=== PATIENT | male | born 1950 | race Caucasian/White ===

== ENCOUNTER → 2017-08-04 | Outpatient (CLI) | payer OTHER | LOC: FIMAGING 10:55 | PROVIDERS: ATTEND Orthopaedic Surgery Orthopaedic Surgery of the Spine | DX: M43.17 Spondylolisthesis, lumbosacral region (principal); I70.0 Atherosclerosis of aorta ==

== ENCOUNTER 2017-08-09 05:45 | Inpatient (IN) | payer OTHER ==
--- NOTE | 2017-08-08 14:37 | GHP ---
[f rep st] PREOP HISTORY AND PHYSICAL DATE OF ADMISSION: 08/09/2017 HISTORY OF PRESENT ILLNESS: The patient is a pleasant, 67-year-old gentleman who states that in his early 20s he was diagnosed with bilateral L5 pars stress fractures. He has had symptoms for many years since that time. He has undergone numerous treatments including physical therapy, acupuncture, multiple epidural steroid injections, chiropractics, and pain management. His symptoms have worsened. He complains predominantly of right buttock pain and difficulty with ambulation and prolonged standing. On a 1-10 scale, his daily pain is typically a 7 to an 8. He denies any loss of bowel or bladder control. SOCIAL HISTORY: The patient quit smoking 12 years ago. He used to smoke approximately 3 to 3-1/2 packs of cigarettes per day. He is retired. He denies the use of current alcohol and current use of tobacco. FAMILY HISTORY: Heart disease, diabetes mellitus type 2, and cancer. PAST MEDICAL HISTORY: Hypertension, hypercholesterolemia, coronary artery disease, borderline diabetes, right Butler-Schlatter disease, and a history of angina. The patient has seen his scruff worker Dr. Rufus Venegas, who did a treadmill stress test that was reviewed and was without chest pain and no evidence of ST-segment changes, and his EKG was normal. The scruff worker stated he was in the relatively low setting of a normal stress test with regard to his cardiovascular risk. PAST SURGICAL HISTORY: Bilateral rotator cuff repairs, right wrist surgery, and 5 cardiac stents. ALLERGIES TO MEDICATIONS: Niacin. PHYSICAL EXAMINATION: VITAL SIGNS: The patient is 5 feet 6 inches tall and weighs 194 pounds. GENERAL: He is alert and oriented x3. CARDIAC: Regular rate and rhythm without a detectable murmur, rub or gallop. LUNGS: Clear to auscultation without rales or rhonchi. NEUROLOGIC: Exam shows bilateral lower extremity strength to be 5/5 throughout. Light touch is intact. He does not have a footdrop. Straight leg raising is positive on the right and negative on the left. Gait is antalgic, favoring the right lower extremity. His buttock pain is worse on the right with extension. RADIOGRAPHIC STUDIES: An updated MRI of the lumbar spine shows a grade 2 isthmic spondylolisthesis at L5-S1 with [id number] degenerative disk disease. There is severe bilateral foraminal stenosis at the same level and bilateral L5 pars fracture nonunions. IMPRESSION: 1. Grade 2 isthmic spondylolisthesis L5-S1. 2. Right L5 radiculopathy. 3. Severe bilateral foraminal stenosis at L5-S1 and gmkcvzhk-qz-klqnsm degenerative disk disease L5-S1. PLAN: Rober has elected to undergo surgery. This will be in the form of an L5- S1 laminectomy, takedown of bilateral pars fracture nonunions, transforaminal lumbar interbody fusion, posterior fusion with instrumentation. Potential risks , benefits, and possible complications have been thoroughly discussed with the patient, including, but not limited to, dural tear with CSF leak, meningitis, nerve root injury, partial or complete paralysis, infection, need for further surgery, drop foot, DVT, PE, pneumonia, stroke, heart attack, hemorrhage, blindness, and . The patient understands because of his medical problems, he may be at higher risk as well. I anticipate a 3-night hospital stay, including the day of surgery. The patient understands my protocol for postoperative pain management. He will be n.p.o. after midnight tonight. /[id number]/MODL MTDD
[2017-08-09] MEDS ORDERED: ceFAZolin 2 GM/SWFI 2 GM/20 ML SYR IVP ONE (06:12)
[2017-08-09] MEDS ORDERED: GABAPENTIN 300 MG CAP PO ONE (06:12)
[2017-08-09] MEDS ORDERED: ACETAMINOPHEN 500 MG TAB PO ONE (06:12)
[2017-08-09] MEDS ORDERED: LR 1,000 ML IV ONE (06:16)
[2017-08-09] MEDS ORDERED: BUPIVACAINE 0.25% 30 ML SDV ONE (06:46)
[2017-08-09] MEDS ORDERED: AVITENE POWDER 1 GM JAR TP ONE (06:46)
[2017-08-09] MEDS ORDERED: CITRATE DEXTROSE SOLN 500 ML BAG ONE (06:46)
[2017-08-09] MEDS ORDERED: THROMBIN (BOVINE) 20,000 UNIT VIAL TP ONE (06:46)
[2017-08-09] MEDS ORDERED: BACITRACIN 50,000 UNITS/10 ML SYR IRR ONE (06:47)
[2017-08-09] MEDS ORDERED: DEXMEDETOMIDINE/NS 4MCG/ML 50 ML BTL IV ONE (07:08)
[2017-08-09] MEDS ORDERED: ALBUMIN 5% 250 ML BOTTLE IV ONE (07:08)
[2017-08-09] MEDS ORDERED: MIDAZOLAM 2 MG/2 ML VIAL ONE (07:09)
[2017-08-09] MEDS ORDERED: PROPOFOL/EMULSION 500 MG/50 ML BOTTLE IV ONE ×2 (07:10→09:54)
[2017-08-09] MEDS ORDERED: fentaNYL 100 MCG/2 ML INJ ONE ×3 (07:10→13:35)
--- NOTE | 2017-08-09 07:16 | PDHPUP ---
History & Physical Update H&P update statement: This history and physical update is based on an assessment of the patient which was completed after admission or registration (within 24 hours), but prior to the surgery/procedure. H&P update: H&P reviewed & patient examined, no change in patient's condition since H&P completed
[2017-08-09] MEDS ORDERED: diphenhydrAMINE 25 MG CAP PO PRN (07:34)
[2017-08-09] MEDS ORDERED: LACTULOSE 20 GM/30 ML UDCUP PO PRN (07:34)
[2017-08-09] MEDS ORDERED: ONDANSETRON 4 MG/2 ML VIAL IVP PRN ×2 (07:34→10:26)
[2017-08-09] MEDS ORDERED: MAGNESIUM HYDROXIDE 30 ML UDCUP PO PRN (07:34)
[2017-08-09] MEDS ORDERED: BISACODYL 10 MG SUPP PR PRN (07:34)
[2017-08-09] MEDS ORDERED: ONDANSETRON DISINTEGRATING 4 MG TAB PO PRN (07:34)
[2017-08-09] MEDS ORDERED: DIAZEPAM 10 MG/2 ML SYR IVP PRN (07:50)
[2017-08-09] MEDS ORDERED: DIAZEPAM 10 MG/2 ML SYR ONE (07:55)
[2017-08-09] MEDS ORDERED: ROCURONIUM 50 MG/5 ML VIAL ONE ×2 (08:21→09:09)
[2017-08-09] MEDS ORDERED: LIDOCAINE 2% 5 ML SDV ONE (08:21)
[2017-08-09] MEDS ORDERED: RANITIDINE 50 MG/2 ML VIAL ONE (08:21)
[2017-08-09] MEDS ORDERED: ONDANSETRON 4 MG/2 ML VIAL ONE (08:21)
[2017-08-09] MEDS ORDERED: METOCLOPRAMIDE 10 MG/2 ML VIAL ONE (08:21)
[2017-08-09] MEDS ORDERED: PHENYLEPHRINE HCL 100 MCG/ML SYR ONE (08:23)
[2017-08-09] MEDS ORDERED: fentaNYL 100 MCG/2 ML INJ IT ONE (08:30)
[2017-08-09] MEDS ORDERED: morphINE PF 5 MG/10 ML INJ IT ONE (08:30)
[2017-08-09] MEDS ORDERED: morphINE PF 5 MG/10 ML INJ ONE (08:33)
--- NOTE | 2017-08-09 09:09 | PDANEPAE ---
ANE Past Medical History - Cardiovascular History Hx Hypertension: Yes Hx Arrhythmias: No Hx Chest Pain: No Hx Coronary Artery / Peripheral Vascular Disease: Yes Hx CHF / Valvular Disease: No Hx Palpitations: No Cardiovascular History Comment: CARDIAC STENTS X7 - Pulmonary History Hx COPD: No Hx Asthma/Reactive Airway Disease: No Hx Recent Upper Respiratory Infection: No Hx Oxygen in Use at Home: No Hx Sleep Apnea: No Sleep Apnea Screening Result - Last Documented: Positive - Neurologic History Hx Cerebrovascular Accident: No Hx Seizures: No Hx Dementia: No - Endocrine History Hx Diabetes: No Endocrine History Comment: POSS PRE DIAB - Renal History Hx Renal Disorders: Yes Renal History Comment: CYSTS KIDNEYS. KIDNEY STONES YRS AGO - Liver History Hx Hepatic Disorders: No - Neurological & Psychiatric Hx Hx Neurological and Psychiatric Disorders: No - Cancer History Hx Cancer: No - Congenital Disorder History Hx Congenital Disorders: No - GI History Hx Gastrointestinal Disorders: No - Other Health History Other Health History: NEG. LYME DISEASE IN PAST - Chronic Pain History Chronic Pain: Yes (BACK PAIN, HIP R) - Surgical History Prior Surgeries: CARDIAC CATH W/STENTS X3. RTC CHARLENE X5. WRIST X2 ANE Review of Systems Review of Systems: - Exercise capacity METS (RN): 4 METS ANE Patient History - Allergies Allergies/Adverse Reactions: niacin Allergy (Verified 07/27/17 10:22) Itching - Home Medications Home Medications: Aspirin [Aspirin 325 mg (*)] 162.5 mg PO DAILY 07/27/17 [Last Taken 07/31/17] Atorvastatin Calcium [Lipitor 40 mg (*)] 40 mg PO DAILY 07/27/17 [Last Taken 04/18] Herbals/Supplements -Info Only 1 ea PO DAILY 07/27/17 [Last Taken 08/01/17] Isosorbide Mononitrate [Imdur 30 mg (*)] 30 mg PO DAILY 07/27/17 [Last Taken 04/18] Lisinopril [Zestril 10 mg (*)] 10 mg PO DAILY 07/27/17 [Last Taken 08/08/17] Metoprolol Succinate Xr [Toprol Xl 50 mg (*)] 50 mg PO DAILY 07/27/17 [Last Taken 08/09/17] Multivitamins [Multivitamin (*)] 1 each PO DAILY 07/27/17 [Last Taken 08/01/17] - NPO status NPO Since - Liquids (Date): 08/08/17 NPO Since - Liquids (Time): 23:00 NPO Since - Solids (Date): 08/08/17 NPO Since - Solids (Time): 19:00 - Smoking Hx Smoking Status: Former smoker - Family Anes Hx Family Hx Anesthesia Complications: NEG ANE Labs/Vital Signs - Vital Signs Blood Pressure: 139/88 Heart Rate: 77 Respiratory Rate: 16 O2 Sat (%): 95 Height: 167.64 cm Weight: 87.543 kg ANE Physical Exam - Airway Neck exam: decreased ROM, short neck Mallampati Score: Class 2 Mouth exam: normal dental/mouth exam, small mouth opening - Pulmonary Pulmonary: no respiratory distress, no rales or rhonchi, clear to auscultation - Cardiovascular Cardiovascular: regular rate and rhythym, no murmur, rub, or gallop - ASA Status ASA Status: III ANE Anesthesia Plan Anesthesia Plan: general endotracheal anesthesia Lines/Monitors: arterial line, additional IV
[2017-08-09] MEDS ORDERED: ceFAZolin 1 GM VIAL ONE (09:10)
[2017-08-09] MEDS ORDERED: METOPROLOL TARTRATE 5 MG/5 ML INJ ONE (09:10)
[2017-08-09] MEDS ORDERED: SUGAMMADEX SODIUM 200 MG/2 ML VIAL IVP ONE (09:24)
[2017-08-09] MEDS ORDERED: LR 500 ML IV PRN (10:26)
[2017-08-09] MEDS ORDERED: DEXAMETHASONE 4 MG/ML VIAL IVP PRN (10:26)
[2017-08-09] MEDS ORDERED: METOCLOPRAMIDE 10 MG/2 ML VIAL IVP PRN (10:26)
[2017-08-09] MEDS ORDERED: NALOXONE HCL 0.4 MG/ML INJ IVP PRN (10:26)
[2017-08-09] MEDS ORDERED: PROMETHAZINE HCL 25 MG/ML INJ IVP PRN (10:26)
[2017-08-09] MEDS ORDERED: ALBUTEROL 3 ML DEYVIAL IH PRN (10:26)
--- NOTE | 2017-08-09 12:36 | POSTOPPROG ---
Post Op Note Date of Operation: 08/09/17 Surgeon: Chastity Soto Store Protection Specialist: Nasreen Amanda SA Anesthesiologist: MD Dagoberto Anesthesia: GET(General Endotracheal) Pre-op Diagnosis: grade 2, spondylolisthesis L5-S1 Post-op Diagnosis: same Indication: Right sciatica and chronic low back pain Procedure: L5-S1 lami, TLIF, posterior fusion with instrumentation Findings: Bilat L5 pars fracture nonunions Inf/Abcess present in the surg proc area at time of surgery?: No Depth: Deep Incisional (Fascial) EBL: 300 cc Total fluids administered: 900 cc LR, 500 cc albumin Complications: none. No changes in neuro monitoring. Drains: Jareth Fiore
[2017-08-09] MEDS: fentaNYL 100 MCG/2 ML INJ IVP PRN ×2 (14:01→14:44)
[2017-08-09] MEDS: ATORVASTATIN CALCIUM 40 MG TAB PO SCH (14:17)
[2017-08-09] MEDS: FAMOTIDINE 20 MG TAB PO SCH ×2 (14:17→20:39)
[2017-08-09] MEDS: ceFAZolin 2 GM/DEXTROSE 100 ML IV SCH ×3 (14:17→22:45)
[2017-08-09] MEDS: ISOSORBIDE MONONITRATE 30 MG TAB.SR PO SCH (14:17)
[2017-08-09] MEDS: SENNOSIDES/DOCUSATE SODIUM TAB PO SCH ×2 (14:18→20:40)
[2017-08-09] MEDS: LISINOPRIL 10 MG TAB PO SCH (14:18)
[2017-08-09] MEDS: morphINE SR 15 MG TAB PO SCH ×2 (14:18→20:40)
[2017-08-09] MEDS: METOPROLOL SUCCINATE XR 50 MG TAB PO SCH (14:19)
[2017-08-09] MEDS: NS W/ 20 KCl/L 1,000 ML IV SCH (15:43)
[2017-08-09] MEDS: DIAZEPAM 5 MG TAB PO PRN ×2 (17:37→22:45)
[2017-08-09] MEDS: oxyCODONE IR 5 MG TAB PO PRN ×2 (17:37→22:44)
[2017-08-10] MEDS: NS W/ 20 KCl/L 1,000 ML IV SCH ×2 (01:59→17:41)
[2017-08-10] MEDS: ceFAZolin 2 GM/DEXTROSE 100 ML IV SCH ×3 (05:20→21:06)
[2017-08-10] MEDS: METOPROLOL SUCCINATE XR 50 MG TAB PO SCH (08:07)
[2017-08-10] MEDS: oxyCODONE IR 5 MG TAB PO PRN (08:07)
[2017-08-10] MEDS: DIAZEPAM 5 MG TAB PO PRN (08:08)
[2017-08-10] MEDS: morphINE SR 15 MG TAB PO SCH ×2 (08:08→22:10)
[2017-08-10] MEDS: ISOSORBIDE MONONITRATE 30 MG TAB.SR PO SCH (08:09)
[2017-08-10] MEDS: FAMOTIDINE 20 MG TAB PO SCH ×2 (08:09→21:17)
[2017-08-10] MEDS: SENNOSIDES/DOCUSATE SODIUM TAB PO SCH ×2 (08:09→21:17)
[2017-08-10] MEDS: LISINOPRIL 10 MG TAB PO SCH (08:10)
[2017-08-10] MEDS: ATORVASTATIN CALCIUM 40 MG TAB PO SCH (08:10)
[2017-08-10] MEDS: POLYETHYLENE GLYCOL 3350 17 GM PKT PO PRN (08:10)
[2017-08-10] MEDS: HYDROmorphONE/DILAUDID 1 MG/ML INJ IVP PRN ×2 (09:01→11:40)
[2017-08-10] MEDS: METHOCARBAMOL 750 MG TAB PO PRN (09:01)
[2017-08-10] MEDS: DEXAMETHASONE 10 MG/ML VIAL IV SCH ×3 (11:28→21:06)
[2017-08-10] MEDS: METOCLOPRAMIDE 10 MG/2 ML VIAL IV SCH ×2 (11:28→21:06)
[2017-08-10] MEDS: GABAPENTIN 300 MG CAP PO SCH ×3 (11:40→21:17)
--- NOTE | 2017-08-10 15:46 | ASMTCMCOM ---
CM Note CM Note Notes: Pt has surgery for spondylolisthesis sciatica; PT/OT evals ordered. At this time OT rec home vs. home health care. PT evals pending. CM to follow for d/c needs. Date Signed: 08/10/2017 03:45 PM Electronically Signed By:ROC Bonilla
--- NOTE | 2017-08-10 16:55 | SOAPPROG ---
SOAP Progress Note Assessment/Plan: Assessment: post op day 1 , s/p L5-S1 lami, tlif, posterior fusion, with instrumentation. Pt had substantial R buttock pain today. Markedly improved with decadron and gabepentin. Pt had preop R buttock pain, but is increased. Nerve irritation likely. However, neuro exam normal. Plan: 08/10/17 16:52 Plan: Cont pain management. Cont decadron and gabepentin. Cont PT and OT. Encourage po intake. Spoke with community development planner for probable home PT and RN for a wk or two post op. Subjective: Pt states it's been very rough today. Complains of R buttock pain. Now a 3. Was a 9-10. Objective: Vital Signs Temp Pulse Resp BP Pulse Ox 36.8 C 79 14 109/59 L 96 08/10/17 16:00 08/10/17 16:00 08/10/17 16:00 08/10/17 16:00 08/10/17 16:00 08/09/17 08/10/17 08/11/17 05:59 05:59 05:59 Intake Total 3230 2425 Output Total 2160 940 Balance 1070 1485 Pt slightly oversedated. Follows directions and is oriented x 3. BLE motor 5/5. Lt touch intact. SLR negative x 2. Drain functioning properly. ICD10 Worksheet Patient Problems: Problems Problem Status Onset Right lower extremity radiculitis Acute lumbar isthmic spondylolisthesis Acute
--- NOTE | 2017-08-10 17:24 | POSTANESTH ---
Post Anesthetic Evaluation Cardiovascular Status: Normal, Stable, Similar to Pre-Op Cond Respiratory Status: Normal, Stable, Similar to Pre-op Cond. Level of Consciousness/Mental Status: Mildly Sleepy, Arousable Pain Control: Adequate, Prn Tx Ordered Nausea/Vomiting Control: Adequate, Prn Tx Ordered Complications Possibly Related to Anesthesia: None Noted
--- NOTE | 2017-08-11 02:26 | GOP ---
[f rep st] OPERATIVE REPORT DATE OF OPERATION: 08/09/2017 SURGEON: Chastity Escobar MD BOOK SOLICITOR: Octavio Amanda SA. ANESTHESIA: General endotracheal intubation. ANESTHESIOLOGIST: Christy Arenas MD. PREOPERATIVE DIAGNOSIS: 1. Grade 2 isthmic spondylolisthesis, L5-S1, with chronic bilateral L5 pars fracture nonunions. 2. Severe degenerative disk disease, L5-S1. 3. Right lower extremity radiculitis. POSTOPERATIVE DIAGNOSIS: 1. Grade 2 isthmic spondylolisthesis, L5-S1, with chronic bilateral L5 pars fracture nonunions. 2. Severe degenerative disk disease, L5-S1. 3. Right lower extremity radiculitis. PROCEDURE PERFORMED: L5-S1 complete laminectomy, bilateral complete facetectomies, transforaminal delonte mbar interbody fusion, posterolateral fusion, use of local autogenous bone graft and allogeneic bone graft, posterior instrumentation, placement of 0.25 mg of intrathecal Duramorph and 25 mg of intrathe michelle fentanyl. FINDINGS: Severe degenerative disk disease, L5-S1; grade 2 isthmic spondylolisthesis, L5-S1; bilater al L5 pars fracture hypertrophic nonunions with severe foraminal stenosis and impingement of bilatera l L5 nerve roots. ESTIMATED BLOOD LOSS: 300 mL. INDICATIONS: The patient is a very pleasant 67-year-old gentleman, who states that in his early 20s he sustained bilateral L5 pars stress fractures. He had been treated with numerous nonoperative solomon tments and was doing fairly well for a while but has had gradually worsening back pain and right butt ock and lower extremity pain. He has tried a number of treatments including physical therapy, anti-i nflammatories, epidural steroid injections, and acupuncture. He mainly has right hip and buttock kiran n. He denies any loss of bowel or bladder control. He has elected to undergo surgery. This was ful ly described, and potential risks and benefits were fully discussed including but not limited to dura l tear with CSF leak, meningitis, nerve root injury, partial or complete paralysis, infection, need f or further surgery, dural tear, foot drop, increased nerve pain, nonunion, breakage or pullout of int ernal fixation, need for further surgery, DVT, PE, pneumonia, stroke, heart attack, hemorrhage, blind ness, and . No guarantees were given in regard to his outcome. DESCRIPTION OF PROCEDURE: After obtaining both written and verbal consent from the patient, he was b rought to the operating room, where he underwent a general endotracheal intubation. Patient received IV Ancef 2 g. Durán catheter was placed. After intubation, patient was rolled to the prone positio n on the Jareth table. All 4 extremities were padded well. The face and eyes were padded per the a nesthesiologist. An 18-gauge needle was used as a metallic marker, and a lateral fluoroscopic x-ray was obtained for localization. The lumbar spine was prepped and draped in the normal sterile fashion . A time-out was performed with the entire operating room team confirming patient's name, date of bi rt, planned surgical procedure including levels, antibiotics given, allergies to medications. After the sterile prep and drape of the posterior lumbar spine, a midline longitudinal incision was m antonia from approximately L4 to S1. The incision was brought down through skin, subcutaneous tissues, i nto the overlying dorsal fascia. Paraspinal muscles were stripped in a subperiosteal fashion. Self- retaining retractors were placed. An intraoperative x-ray confirmed localization of the spinous proc ess of L5. The transverse processes of L5 bilaterally and the sacral alae of S1 were stripped of the ir subperiosteal attachments. There was significant hypermobility of the posterior elements due to t he pars interarticularis stress fractures bilaterally. At this time, using the O-arm, AP and lateral x-rays were obtained, and then a 3-dimensional spin was performed. Using both the guidance of the O -arm, 3-dimensional images in addition to basic anatomic landmarks; pedicle screw sites were identifi ed at L5 and S1 bilaterally. Initially, the left side was performed first. Using the anatomic landm ark of the lateral border of the facet joint at L4-5 and the midline of the transverse process of L5 at its intersection, a 3 mm round bur was used to create a pilot manager hole. The gearshift with reference to the O-arm was also used to create the starting pilot manager hole. Based on these 3-dimensional images, t he gearshift was used to palpate down the shaft of the left L5 pedicle. Then, at this time, the neur al integrity monitoring probe was utilized and the left L5 gearshift stimulated to 14 mA. Then, a ba ll-tipped probe was used to palpate the entire depth of the pedicle screw site. This had good bone c ircumferentially around the entire depth. A piece of bone wax was used then to plug the hole tempora rily. Then, the left S1 pedicle site was identified in a similar fashion. The gearshift stimulated to 16 mA, and the ball-tipped probe showed good circumferential bone around the entire depth of it. Then, a rat-toothed rongeur was then used to decorticate the transverse process of L5 and, the sacral ala was decorticated with a 1/4-inch curved osteotome and mallet. At this time, demineralized bone matrix and crushed cancellous allograft were packed in a posterolateral position from the transverse process of L5 down to the sacral ala. Then, at this time, a 6.5 x 40 mm reduction screw by [facility] was placed in the L5 trajectory and had good purchase and stimulated to 15 mA. The left S1 sc rew was a 6.5 x 40 mm regular screw, and this stimulated to 16 mA. Then, the right side was performe d in a similar fashion using O-arm guidance. Again, using basic anatomic landmarks along the lateral border of the facet joint at L4-5 and the intersection of the midline of the L5 transverse process, the right L5 pedicle was identified, and a 3 mm bur was used to create a pilot manager hole followed by the u se of the gearshift. Under O-arm guidance, the right L5 gearshift stimulated to 17 mA and using ball -tipped probe had good bone circumferentially around the entire depth of it. A piece of bone wax was used to plug the hole temporarily. Then, the right S1 pedicle screw site was identified and a gears hift stimulated to 16 mA. Again, there was good bone circumferentially around the entire depth of th e proposed pedicle screw site. Again, decortication of the transverse process of L5 and the sacral a la was performed, and allogeneic bone graft was packed into a posterolateral position prior to placem ent of the screws. The right L5 screw was then placed, which was a 6.5 x 45 mm reduction screw, and this stimulated to 18 mA. The right S1 screw that was placed was a 6.5 x 40 mm screw, and this stimu lated to 9 mA. They all had excellent bone purchase. Then, a 3-dimensional spin was performed using the O-arm, and the stereotactic images were reviewed. Patient's right L5 and S1 anatomy was skewed compared to that of the left as his baseline. Nonetheless, review of all of the images showed good b one purchase circumferentially. Both the right L5 and S1 screws were close to the neural foramen but did not appear to be within it at all. There was no spontaneous EMG activity, and motor potentials were normal. Somatosensory-evoked potentials also remained normal throughout the entire process of o btaining and placing pedicle screws bilaterally at L5 and S1. Rods had not been placed yet. At this time, under loupe magnification, the posterior elements of L5 including spinous process and lamina w ere completely removed with a rongeur and a 3 and 4 mm Kerrison. Furthermore, bilateral L5 and S1 fa cet joints and bilateral pars fracture nonunions at L5 were taken down with a 5 mm round bur as well as a 3 mm Kerrison under loupe magnification. No reduction had been performed yet as no rods had bee n placed. The L5 nerve roots were both bilaterally visualized and were very constricted based on the pars fracture nonunions being hypertrophic and severe foraminal stenosis. However, the foramina wer e then decompressed with a 2 and 3 mm Kerrison bilaterally, L5-S1. Again, intraoperative neuromonito ring including somatosensory-evoked potentials, motor-evoked potentials, and EMGs remained normal and unchanged. Then, at this time, the access for the transforaminal lumbar interbody fusion was perfor med initially starting on the left. Bipolar cautery was used for hemostasis. A Love nerve root retr actor was used to protect the midline thecal sac and the exiting left L5 and S1 nerve roots. A 15-bl antonia knife was used to create a small annulotomy, but the disk at L5-S1 was so severely degenerative t hat it was necessary to use a straight 1/4-inch osteotome to remove the posterior superior aspect of S1 vertebral body and osteophyte to gain access to the disk space itself. Once the disk space was ac cessed, an intraoperative x-ray using a Schoolcraft 4 showed accurate localization of the L5-S1 disk spa ce, and aziza were utilized from the [employer] initially starting with a 6 mm shaver t hen going up to a 9 mm shaver. Once the left side of the disk was fully removed, trial was utilized, and the 9 mm had the best fit. A 10 x 27 x 9 mm lordosed Lucent Ti-Malik porous coated PEEK cage was prepared using autogenous bone graft and demineralized bone matrix. While protecting all the neural structures on the left at L5-S1, the Ti-Malik porous coated PEEK cage was tamped into position and re cessed about 2 mm. A Derik was used to palpate the posterior aspect of it, and it was definitely n ot causing any compressive pathology upon the exiting nerve root at L5 or S1 or the midline thecal sa c. Then, the identical same thing was performed on the right side. Again, the disk was so severely degenerative and vieo-he-qxzs contact such that a 1/4-inch osteotome was necessary to remove the post erior lip of the S1 vertebral body to gain access. Another intraoperative x-ray confirmed localizati on of the L5-S1 disk space. Then, the right side of the disk was completely removed with pituitary r ongeurs, curved curettes, and aziza. Again, a 9 mm trial had the best fit. Therefore, a 10 x 27 x 9 mm lordosed PEEK cage was packed with bone graft and then tamped into position while protecting al l of the neural structures. Again, there were no changes in spinal cord monitoring including SSEPs, motor-evoked potentials, and EMGs. Then, at this time, a pre-cut pre-contoured titanium ryan measurin g 50 mm in length was placed in the screw heads on the left and another one on the right, and locking caps were then tightened down. A very minimal reduction was performed using approximately 1 to 3 mm of distraction on the left and 1 to 2 mm of distraction on the right. Again, there were no changes in spinal cord monitoring. The caps were then tightened down, and a counter-torque and torque wrench were used to perform a final tightening. An AP and a lateral fluoroscopic view showed good position of the internal fixation at L5-S1 including PEEK cages. At this time, 0.25 mg of intrathecal Duramo rph and 25 mcg of intrathecal fentanyl were placed using a 30-gauge needle in the subarachnoid space for postoperative pain control. Large pieces of dried Gelfoam were then placed over the dura to prot ect it, and Avitene was also used to obtain hemostasis. A 10 flat DEON drain was placed deep to the fa scial layer and sewn in with a 2-0 nylon suture at the skin level. Sponge and needle counts were cor rect. Hemostasis was obtained. At this time, a size small bone morphogenic protein was packed in a posterolateral position at L5-S1 to augment arthrodesis. The wound was then closed after the final x -rays were obtained showing good position of internal fixation and PEEK cages at L5-S1. The wound wa s closed using a #1 Vicryl in the deep fascial layer followed by an 0 Vicryl and a 2-0 undyed Vicryl and skin [place]. Sterile dressing was applied. Back brace was placed. Durán catheter was left in place. Patient was rolled to the supine position. He was extubated in the operating room and garfield t to the recovery room in satisfactory condition. COMPLICATIONS: None. There were no changes in somatosensory-evoked potentials, motor-evoked potenti als, or EMGs. POSTOPERATIVE PLAN: Close neurologic observation, close airway observation, PT, OT, and pain control . DRAINS: One size 10 DEON drain. /[id number]/MODL
[2017-08-11] MEDS: METOCLOPRAMIDE 10 MG/2 ML VIAL IV SCH ×3 (04:10→21:02)
[2017-08-11] MEDS: DEXAMETHASONE 10 MG/ML VIAL IV SCH (04:11)
[2017-08-11] MEDS: NS W/ 20 KCl/L 1,000 ML IV SCH (04:22)
[2017-08-11] MEDS: ceFAZolin 2 GM/DEXTROSE 100 ML IV SCH (06:04)
[2017-08-11] MEDS: ATORVASTATIN CALCIUM 40 MG TAB PO SCH (08:20)
[2017-08-11] MEDS: GABAPENTIN 300 MG CAP PO SCH ×3 (08:21→21:01)
[2017-08-11] MEDS: SENNOSIDES/DOCUSATE SODIUM TAB PO SCH ×2 (08:21→21:02)
[2017-08-11] MEDS: morphINE SR 15 MG TAB PO SCH ×2 (08:21→21:01)
[2017-08-11] MEDS: ISOSORBIDE MONONITRATE 30 MG TAB.SR PO SCH (08:22)
[2017-08-11] MEDS: LISINOPRIL 10 MG TAB PO SCH (08:22)
[2017-08-11] MEDS: METOPROLOL SUCCINATE XR 50 MG TAB PO SCH (08:22)
[2017-08-11] MEDS: FAMOTIDINE 20 MG TAB PO SCH ×2 (08:23→21:01)
[2017-08-11] MEDS: POLYETHYLENE GLYCOL 3350 17 GM PKT PO PRN (08:23)
--- NOTE | 2017-08-11 11:58 | ASMTCMCOM ---
CM Note CM Note Notes: PT/OT rec home health care at this time, pt agreeable to [facility] service. [facility] accepts pt, takes pt insurance and services pt location. CM to follow. Date Signed: 08/11/2017 11:57 AM Electronically Signed By:ROC Bonilla
[2017-08-11] MEDS: oxyCODONE IR 5 MG TAB PO PRN ×3 (12:10→21:02)
[2017-08-11] MEDS: METHOCARBAMOL 750 MG TAB PO PRN (12:10)
[2017-08-11 15:53] VITALS: RESP 16
--- NOTE | 2017-08-11 16:58 | SOAPPROG ---
SOAP Progress Note Assessment/Plan: Assessment: post op day 1 , s/p L5-S1 lami, tlif, posterior fusion, with instrumentation. Pt had substantial R buttock pain today. Markedly improved with decadron and gabepentin. Pt had preop R buttock pain, but is increased. Nerve irritation likely. However, neuro exam normal. Plan: 08/10/17 16:52 Plan: Cont pain management. Cont decadron and gabepentin. Cont PT and OT. Encourage po intake. Spoke with conservation planner for probable home PT and RN for a wk or two post op. 08/11/17 16:55 post op day 2, s/p L5-S1 lami, tlif, post. fusion/instrumentation. Pt doing remarkably better. Plan: Cont PT and OT. Pt will be discharged to home tomorrow around noon. Cont gabepentin. Subjective: Pt states his Right "hip and buttock" pain is gone. Feeling much better. Objective: Vital Signs Temp Pulse Resp BP Pulse Ox 36.7 C 92 16 127/79 H 92 08/11/17 15:50 08/11/17 15:50 08/11/17 15:50 08/11/17 15:50 08/11/17 15:50 08/10/17 08/11/17 08/12/17 05:59 05:59 05:59 Intake Total 3230 3325 1530 Output Total 2160 1470 1915 Balance 1070 1855 -385 Lumbar wound: multiple blisters. Mild serosanguinous drainage. No erythema or purulence. BLE motor 5/5. Neuro intact. SLR negative x 2. Surya's negative x 2. ICD10 Worksheet Patient Problems: Problems Problem Status Onset Right lower extremity radiculitis Acute lumbar isthmic spondylolisthesis Acute
[2017-08-11] MEDS: DIAZEPAM 5 MG TAB PO PRN (21:02)
[2017-08-12] MEDS: METHOCARBAMOL 750 MG TAB PO PRN (01:12)
[2017-08-12] MEDS: METOCLOPRAMIDE 10 MG/2 ML VIAL IV SCH ×2 (04:49→12:01)
[2017-08-12 08:37] VITALS: BP 120/68; PULSE 94; TEMP 98.4; O2SAT 93
[2017-08-12] MEDS: METOPROLOL SUCCINATE XR 50 MG TAB PO SCH (09:42)
[2017-08-12] MEDS: SENNOSIDES/DOCUSATE SODIUM TAB PO SCH (09:43)
[2017-08-12] MEDS: FAMOTIDINE 20 MG TAB PO SCH (09:43)
[2017-08-12] MEDS: ISOSORBIDE MONONITRATE 30 MG TAB.SR PO SCH (09:43)
[2017-08-12] MEDS: GABAPENTIN 300 MG CAP PO SCH (09:43)
[2017-08-12] MEDS: morphINE SR 15 MG TAB PO SCH (09:43)
[2017-08-12] MEDS: ATORVASTATIN CALCIUM 40 MG TAB PO SCH (09:43)
[2017-08-12] MEDS: LISINOPRIL 10 MG TAB PO SCH (09:43)
--- NOTE | 2017-08-12 12:55 | SOAPPROG ---
SOAP Progress Note Assessment/Plan: Assessment: post op day 1 , s/p L5-S1 lami, tlif, posterior fusion, with instrumentation. Pt had substantial R buttock pain today. Markedly improved with decadron and gabepentin. Pt had preop R buttock pain, but is increased. Nerve irritation likely. However, neuro exam normal. Plan: 08/10/17 16:52 Plan: Cont pain management. Cont decadron and gabepentin. Cont PT and OT. Encourage po intake. Spoke with network planner for probable home PT and RN for a wk or two post op. 08/11/17 16:55 post op day 2, s/p L5-S1 lami, tlif, post. fusion/instrumentation. Pt doing remarkably better. Plan: Cont PT and OT. Pt will be discharged to home tomorrow around noon. Cont gabepentin. 08/12/17 12:54 post op day 3, s/p L5-S1 lami, tlif, post fusion and instrumentation. Pt doing very well and ready for discharge.. Pt has Rxs and f/u appt. Set up for home health care. Subjective: Pt states R hip and buttock pain remains resolved. Objective: Vital Signs Temp Pulse Resp BP Pulse Ox 36.9 C 94 16 120/68 93 08/12/17 08:00 08/12/17 09:42 08/12/17 08:00 08/12/17 09:43 08/12/17 08:00 08/11/17 08/12/17 08/13/17 05:59 05:59 05:59 Intake Total 3325 2030 Output Total 1470 2155 Balance 1855 -125 BLE motor 5/5. Surya's test negative x 2. Drain removed by RN this a.m. ICD10 Worksheet Patient Problems: Problems Problem Status Onset Right lower extremity radiculitis Acute lumbar isthmic spondylolisthesis Acute
--- NOTE | 2017-08-12 13:04 | PDIAF ---
- Diagnosis Code Status: Full Code - Medication Management Discharge Medications: Medications to Continue on Transfer Atorvastatin Calcium [Lipitor 40 mg (*)] 40 mg PO DAILY 07/27/17 [Last Taken 04/18] Isosorbide Mononitrate [Imdur 30 mg (*)] 30 mg PO DAILY 07/27/17 [Last Taken 04/18] Lisinopril [Zestril 10 mg (*)] 10 mg PO DAILY 07/27/17 [Last Taken 08/08/17] Metoprolol Succinate Xr [Toprol Xl 50 mg (*)] 50 mg PO DAILY 07/27/17 [Last Taken 08/09/17] Atorvastatin Calcium [Lipitor 40 mg (*)] 40 mg PO DAILY tab 08/12/17 [Last Taken Unknown] Gabapentin [Neurontin 300 MG (*)] 300 mg PO TID #90 cap 08/12/17 [Last Taken Unknown] Isosorbide Mononitrate [Imdur 30 mg (*)] 30 mg PO DAILY tab.sr 08/12/17 [Last Taken Unknown] Lisinopril [Zestril 10 mg (*)] 10 mg PO DAILY tab 08/12/17 [Last Taken Unknown] Metoprolol Succinate Xr [Toprol Xl 50 mg (*)] 50 mg PO DAILY tab 08/12/17 [ Last Taken Unknown] morphINE SR [Ms Contin/Oramorph 15 mg (*)] 30 mg PO BID #30 tab 08/12/17 [Last Taken Unknown] Discharge Medications: Refer to the Discharge Home Medication list for PRN reason. PICC Care - Routine: N/A - Orders Services needed: Registered Nurse, Physical Therapy Home Care Face to Face: 25 min on 08/12/17 Diet Recommendation: no restrictions on diet Diet Texture: Regular Texture Diet Durán: Not applicable Cosmo Stockings Discontinue Date: 08/15/17 Wound Care Instructions: Daily dry dressing change to lumbar wound. Pt will shower with brace and dressing off daily. NO ointment on wound. Ok to place ointment on blisters. Activity/Weight Bearing Restrictions: full weight bearing. NO bending, lifting , twisting. - Follow Up Care Current Providers and Referrals: Doctor Not,On Staff, MD [Primary Care Provider] -
--- NOTE | 2017-08-12 15:01 | ASMTCMCOM ---
CM Note CM Note Notes: Pt medically stable for d/c with [facility]. Orders sent in [employer]. Date Signed: 08/12/2017 03:01 PM Electronically Signed By:ROC Bonilla
--- NOTE | 2017-08-12 15:02 | ASDISCHSUM ---
Discharge Information Plan Status:Home with Home Health Medically Cleared to Leave: Discharge Date:08/12/2017 01:18 PM CM D/C Disposition:Home Health Service ADT D/C Disposition:[id number] Projected Discharge Date:08/12/2017 11:00 AM Transportation at D/C:Family Discharge Delay Reason: Follow-Up Date:08/12/2017 11:00 AM Discharge Slot: Final Diagnosis: Placement Information Referral Type:*Home Health Care Services Referral ID:[id number] Provider Name:[facility] [place] Address 1:[address] [place] [address] Address 2: City:[place] Selection Factors: State:[place] Patient Contact Information Contact Name:PREM Relationship: Address: Work Phone: City: [facility] Phone: State/[facility] Code: Email: Financial Information Financial Class: Primary Plan Desc:MEDICARE INPATIENT Primary Plan Number:[id number] Secondary Plan Desc:[employer] Secondary Plan Number:[id number] Assessment Information [facility] CM Progress Note CM Note CM Note Notes: Pt has surgery for spondylolisthesis sciatica; PT/OT evals ordered. At this time OT rec home vs. home health care. PT evals pending. CM to follow for d/c needs. Date Signed: 08/10/2017 03:45 PM Electronically Signed By:ROC Bonilla [facility] CM Progress Note CM Note CM Note Notes: PT/OT rec home health care at this time, pt agreeable to [facility] service. [facility] accepts pt, takes pt insurance and services pt location. CM to follow. Date Signed: 08/11/2017 11:57 AM Electronically Signed By:ROC Bonilla [facility] CM Progress Note CM Note CM Note Notes: Pt medically stable for d/c with [facility]. Orders sent in [employer]. Date Signed: 08/12/2017 03:01 PM Electronically Signed By:ROC Bonilla Intervention Information
--- NOTE | 2017-08-12 20:40 | GDS ---
[f rep st] DISCHARGE SUMMARY HOSPITAL COURSE: The patient is a pleasant 67-year-old gentleman, who has had a many-year history of low back pain and buttock pain, mainly on the right. This stemmed from when he was in his early 20s . He tried numerous nonoperative treatments, including epidural steroid injections, physical therapy , anti-inflammatories, and acupuncture. He was found to have a grade 2 isthmic spondylolisthesis at L5-S1, with bilateral foraminal stenosis and chronic L5 pars fracture nonunion. He ultimately electe d to undergo surgery. On the date of admission, 08/09/2017, the patient underwent general endotrache al intubation. Under neuromonitoring, the patient underwent an L5-S1 complete laminectomy, bilateral facetectomies at L5-S1, transforaminal lumbar interbody fusion, and posterior fusion with instrument ation. Intrathecal Duramorph and fentanyl were utilized for pain control. There were no intraoperat salomón complications or neurological changes. Postoperatively, initially, the patient experienced significant right buttock and what he called hip pain, which was similar but worse than preoperatively. He was placed on Decadron and gabapentin, whi ch improved his symptomatology significantly. The patient had a drain in the wound, and this was ult imately removed on postoperative day 3. The patient had been kept on IV antibiotics. Dressing grayson es showed that there were no signs of infection. The patient was seen in physical therapy and occupa tional therapy, and became independent in ambulation and activities of daily living. Pain control wa s via MS Contin 30 mg 1 p.o. b.i.d., oxycodone 1-2 every 6 hours p.r.n. for his home prescription, Va lium 5 mg 1 p.o. q.8 hours p.r.n., and gabapentin 300 mg 1 p.o. t.i.d. He had been given a prescript ion for Keflex 500 mg 1 p.o. q.i.d. x3 days for home as well. The patient is being seen by home health care, which has already been arranged, including nursing and physical therapy. He understands he needs to wear his back brace at all times, daily shower with th e dressing and brace off, walking, and no bending, lifting, or twisting. The patient has a followup appointment scheduled in advance at my office for staple removal. He and his understand that th ey are to call my office or go to the nearest emergency room immediately if they have any concerns fo r possible complications or any questions. Otherwise, the patient has done exceedingly well and stat es his preoperative right buttock and hip pain, which was radicular pain, have resolved completely. He is being discharged to home in satisfactory condition. /[id number]/MODL
== END 2017-08-12 13:18 | disposition home health service (06) | DRG 460 ==
LOC: F3N 05:45 → EDBD 07:15 → F3N 15:22
PROVIDERS: ADMIT Orthopaedic Surgery Orthopaedic Surgery of the Spine; ATTEND Orthopaedic Surgery Orthopaedic Surgery of the Spine
PROC: 3E0U0GB Introduction of Recombinant Bone Morphogenetic Protein into Joints, Open Approach (ICD-10-PCS; principal; 2017-08-09 07:15)
PROC: 0SG30AJ Fusion of Lumbosacral Joint with Interbody Fusion Device, Posterior Approach, Anterior Column, Open Approach (ICD-10-PCS; principal; 2017-08-09 07:15)
PROC: 0ST40ZZ Resection of Lumbosacral Disc, Open Approach (ICD-10-PCS; principal; 2017-08-09 07:15)
PROC: 0QB00ZZ Excision of Lumbar Vertebra, Open Approach (ICD-10-PCS; principal; 2017-08-09 07:15)
DX: M43.17 Spondylolisthesis, lumbosacral region (principal); M51.17 Intervertebral disc disorders with radiculopathy, lumbosacral region; I25.10 Atherosclerotic heart disease of native coronary artery without angina pectoris; E78.5 Hyperlipidemia, unspecified; R73.03 Prediabetes; I10 Essential (primary) hypertension; K21.9 Gastro-esophageal reflux disease without esophagitis; I25.2 Old myocardial infarction; Z87.891 Personal history of nicotine dependence; Z95.5 Presence of coronary angioplasty implant and graft
CPT/HCPCS: 97116-GP; 97162-GP; 97165-GO; 97530-GP; 97535-GO; C1713; G8978-GP-CI; G8978-GP-CL; G8979-GP-CI; G8979-GP-CJ; G8980-GP-CI; G8987-GO-CK; G8988-GO-CI; G8989-GO-CI; J0690; J1100; J1170; J2250; J2274; J2370; J2405; J2704; J2765; J2780; J3010; J7060; P9041